=== PATIENT | male | born 1965 | race African-American/Black ===

== ENCOUNTER 2025-01-29 14:22 | Inpatient (IN) | payer OTHER ==
[2025-01-29 15:21] VITALS: BMI 23.3
[2025-01-29] MEDS ORDERED: POLYETHYLENE GLYCOL (HEALTHYLAX) 3350 17 GM PACKET PO PRN (15:30)
[2025-01-29] MEDS ORDERED: LOPERAMIDE HCL 2 MG CAPSULE PO PRN (15:30)
[2025-01-29] MEDS ORDERED: BENZONATATE 200 MG CAPSULE PO PRN (15:30)
[2025-01-29] MEDS ORDERED: MAGNESIUM HYDROX 2400MG/30ML ORAL SUSPENSION 30 ML CUP PO PRN (15:30)
[2025-01-29] MEDS ORDERED: guaiFENesin 600 MG TABLET.ER (FP) PO PRN (15:30)
[2025-01-29] MEDS ORDERED: MAG HYDROX/AL HYDROX/SIMETH 30 ML UNIT-DOSE CUP PO PRN (15:30)
[2025-01-29] MEDS ORDERED: NALOXONE (NARCAN) HCL 4 MG/0.1 ML SPRAY NS PRN (15:30)
[2025-01-29] MEDS: TUBERCULIN PPD 5 TU/0.1ML SYRINGE (IN PATIENT USE ONLY) ID ONE (19:30)
[2025-01-29] MEDS: THIAMINE 100 MG TABLET PO SCH (21:26)
[2025-01-29] MEDS: MELATONIN 5 MG TABLETS PO SCH (21:26)
[2025-01-29] MEDS: IBUPROFEN 600 MG TABLET (FP) PO PRN (22:15)
[2025-01-29] MEDS: ACETAMINOPHEN 325 MG TABLET (FP) PO PRN (22:43)
[2025-01-30] MEDS: PRENATAL VITAMINS W/ FOLIC ACID TABLET (FP) PO SCH (10:13)
[2025-01-30] MEDS: METHIMAZOLE 5 MG TABLET PO SCH (10:13)
[2025-01-30 12:23] LABS: MCHC 31.0 g/dl (32.3-36.5); MEAN CELL VOLUME 97.3 fl (79.0-92.2); MEAN PLT VOLUME 11.1 fl (9.4-12.4); RDW 15.1 % (12.2-16.1)
[2025-01-30 12:36] LABS: CO2 28.0 mmol/L (21-32); GLUCOSE,RANDOM 103.0 mg/dL (74-106)
[2025-01-30 12:39] LABS: CREATININE 0.8 mg/dL (0.55-1.3); SGOT/AST 31.0 U/L (15-37); SGPT/ALT 65.0 U/L (13-61)
[2025-01-30 12:40] LABS: TOT PROT 7.8 g/dl (6.4-8.2)
[2025-01-30 12:41] LABS: ALK PHOS 90.0 U/L (45-117)
[2025-01-30] MEDS ORDERED: ARTIFICIAL TEARS OPHTHALMIC DROPS OU PRN (14:00)
[2025-01-30] MEDS: GABAPENTIN 400 MG CAPSULE PO SCH (14:11)
[2025-01-30] MEDS: LIDOCAINE 5% TOPICAL PATCH TP SCH (14:11)
[2025-01-30] MEDS: MELATONIN 5 MG TABLETS PO SCH (21:14)
[2025-01-30] MEDS: LIDOCAINE PATCH REMOVAL MC SCH (21:15)
[2025-01-30] MEDS: TOLNAFTATE 1% CREAM 15 GM TUBE TP SCH (21:15)
[2025-01-31] MEDS: BENZOCAINE 20 % GEL TUBE MM PRN ×2 (00:58→16:44)
[2025-01-31] MEDS: BACLOFEN 10 MG TABLET (FP) PO SCH (10:24)
[2025-01-31] MEDS: PENICILLIN G BENZATHINE 2,400,000 UNIT/4 ML PFS IM ONE (10:58)
[2025-01-31 12:19] LABS: URINE APPEARANCE CLEAR; URINE BILIRUBIN NEGATIVE (NEGATIVE); URINE COLOR YELLOW; URINE GLUCOSE (UA) NEGATIVE (NEGATIVE); URINE KETONE NEGATIVE (NEGATIVE); URINE LEUK ESTERASE NEGATIVE (NEGATIVE); URINE NITRITE NEGATIVE (NEGATIVE); URINE PROTEIN NEGATIVE (NEGATIVE); URINE UROBILINOGEN 0.2 mg/dL (0.2-1.0)
[2025-02-02] MEDS: ALBUTEROL SO4 HFA INHALER IH PRN (21:39)
[2025-02-03] MEDS: diphenhydrAMINE HCL 25 MG CAPSULE (FP) PO PRN (11:30)
[2025-02-03] MEDS: FLUTICASONE PROP 0.05% 16 GM NASAL SPRAY NS SCH (13:16)
[2025-02-03] MEDS: BENZOCAINE/MENTHOL (CHLORASEPTIC ) LOZENGE MM PRN (22:03)
[2025-02-04] MEDS ORDERED: GABAPENTIN 400 MG CAPSULE PO SCH (15:29)
[2025-02-04] MEDS: GABAPENTIN 300 MG, GABAPENTIN 200 MG PO SCH (21:18)
[2025-02-07] MEDS: PENICILLIN G BENZATHINE 2,400,000 UNIT/4 ML PFS IM ONE (10:06)
[2025-02-07] MEDS ORDERED: GABAPENTIN 100 MG CAPSULE ONE (21:13)
[2025-02-08 05:36] VITALS: RESP 18
[2025-02-12 05:29] VITALS: BP 125/94; PULSE 93; TEMP 97.3
[2025-02-12] MEDS: IBUPROFEN 400 MG TABLET (FP) PO PRN (05:37)
[2025-02-12] MEDS: PENICILLIN G BENZATHINE 2,400,000 UNIT/4 ML PFS IM ONE (06:37)
[2025-02-14] MEDS ORDERED: PENICILLIN G BENZATHINE 2,400,000 UNIT/4 ML PFS IM ONE (10:00)
== END 2025-02-12 08:34 | disposition home or self-care (01) | DRG 772 ==
LOC: YASAS 14:22 → Y3NR 16:58 → Y3W 01-30 10:47
PROVIDERS: ADMIT Neuromusculoskeletal Medicine & OMM; ATTEND Psychiatry & Neurology Pain Medicine
PROC: HZ42ZZZ Group Counseling for Substance Abuse Treatment, Cognitive-Behavioral (ICD-10-PCS; principal; 2025-01-29)
DX: F14.20 Cocaine dependence, uncomplicated (principal); G47.00 Insomnia, unspecified; E05.90 Thyrotoxicosis, unspecified without thyrotoxic crisis or storm; J45.909 Unspecified asthma, uncomplicated; J30.2 Other seasonal allergic rhinitis; K04.7 Periapical abscess without sinus; K03.81 Cracked tooth; R76.8 Other specified abnormal immunological findings in serum; Z87.891 Personal history of nicotine dependence; Z59.00 Homelessness unspecified; Z56.0 Unemployment, unspecified
CPT/HCPCS: 36415; 80053; 80305; 80307; 81003; 85027; 86593; 86780; 87811; 93005; 93010; J0475